=== PATIENT | male | born 1950 | race Caucasian/White ===

== ENCOUNTER 2017-07-28 20:24 | Emergency (ER) | payer MEDICARE, OTHER ==
[~2017-07-28] VITALS: Ht 177.8 cm; Wt 72.6 kg
[2017-07-28] MEDS ORDERED: 0.9 % SODIUM CHLORIDE 10 ML DISP.SYRIN. IV PRN (20:45)
[2017-07-28] MEDS ORDERED: fentaNYL PF VIAL 100 MCG/2 ML VIAL IV PRN (20:45)
--- NOTE | 2017-07-28 20:47 | PHYS DOC ---
Past Medical History Past Medical History: Hypertension Additional Past Medical Histor: PATIENT NON COMPLIANT WITH ALL MEDICAL TREATMENT Smoking: Cigarettes, Greater than 1 pack/day Adult General Chief Complaint Chief Complaint: HIP PAIN HPI HPI Patient is a 66 year old male who presents with family after a fall. 2 days ago patient was balancing himself on the top edge of the couch trying to reach the ceiling when he fell onto his right side. Hit his right ribs and right hip. Has had pain since. He has prior medical diagnosis "BUT REFUSES ALL CARE" per his family. He "just wants an xray." he is a very heavy smoker. No increase in SOA. No abdominal pain. Denies striking head. No known LOC. He called his family immediately after happening. Review of Systems Review of Systems Constitutional: Denies fever or chills Eyes: Denies change in visual acuity, redness, or eye pain HENT: Denies nasal congestion or sore throat Respiratory: Denies cough or shortness of breath Cardiovascular: right rib pain. GI: Denies abdominal pain, nausea, vomiting, bloody stools or diarrhea : Denies dysuria or hematuria Musculoskeletal: Denies back pain. POS right joint pain Integument: Denies rash or skin lesions Neurologic: Denies headache, focal weakness or sensory changes Current Medications Current Medications Current Medications Medications (Trade) Dose Ordered Sig/[place] Start Time Stop Time Status Last Admin Dose Admin Clonidine HCl (Catapres) 0.1 mg 1X ONCE 07/28/17 21:15 07/28/17 21:16 Fentanyl Citrate (Fentanyl 2ml Vial) 50 mcg PRN Q15MIN PRN 07/28/17 20:45 07/29/17 20:44 Sodium Chloride (Normal Saline Flush) 10 ml QSHIFT PRN 07/28/17 20:45 Allergies Allergies Allergies Coded Allergies Type Severity Reaction Last Updated Verified Unable to Assess 07/28/17 No Physical Exam Physical Exam Constitutional: Well developed, well nourished, no acute distress, non-toxic appearance. Heavy tobacco smell on patient. HENT: Normocephalic, atraumatic, bilateral external ears normal, oropharynx moist, no oral exudates, nose normal. Fluid filled sacs bilaterally infra- orbitally. Eyes: PERRLA, EOMI, conjunctiva normal, no discharge. Neck: Normal range of motion, no tenderness, supple, no stridor. Non tender to palpation; no step off or crepitance. Cardiovascular:Heart rate regular rhythm, no murmur Lungs & Thorax: Bilateral breath sounds coarse bilaterally; no wheezing. Abdomen: Bowel sounds normal, soft, no tenderness, no masses, no pulsatile masses. Skin: Warm, dry, no erythema, no rash. No bruising or ecchymosis noted to skin. No wounds. Back: No tenderness on palpation of thoracic or lumbar spine. Extremities: Ambulates normally; pain on palpation of right superior iliac crest. NVI distally; normal hip flexion. Neurologic: Alert and oriented X 3, normal motor function, normal sensory function, no focal deficits noted. Current Patient Data Vital Signs Vital Signs Date Time Temp Pulse Resp B/P (MAP) Pulse Ox O2 Delivery O2 Flow Rate FiO2 07/28/17 20:41 98.9 53 20 214/103 (140) 99 Room Air 98.9 EKG EKG PATIENT REFUSED Radiology/Procedures Radiology/Procedures CXR interpreted by myself at 2110 PM: No pneumothorax, no pleural effusion, no obvious rib fracture noted. No scapular or clavicle or bony injury. Pelvis interpreted by myself at 2110 PM: No fracture seen. Course & Med Decision Making Course & Med Decision Making Evaluated patient upon arrival. HE CLEARLY HAS MULTIPLE MEDICAL PROBLEMS THAT HAVE BEEN NEGLECTED. His blood pressure is quite elevated. Ordered lab and EKG. HE REFUSES ALL TESTS BUT THE XRAY. Family present during this. Xrays with no obvious injury. AGAIN REITERATED THAT PATIENT IS HIGH RISK. HE AGAIN DECLINES ALL OTHER EVALUATION AND TREATMENT. Daughter knows this and understands risk. Tramadol here for pain. Home w Rx and referral for follow up ( "but I wont' go"). I have spoken with the patient and/or caregivers. I have explained the patient' s condition, diagnosis and treatment plan based on the information available to me at this time. I have answered the patient's and/or caregiver's questions and addressed any concerns. The patient and/or caregivers have as good an understanding of the patient's diagnosis, condition and treatment plan as can be expected at this point. The patient's condition is stable and appropriate for discharge from the emergency department. The patient will pursue further outpatient evaluation with the primary care physician or other designated or consulting physician as outlined in the discharge instructions. The patient and/or caregivers are agreeable to this plan of care and follow-up instructions have been explained in detail. The patient and/or caregivers have received these instructions in written format and have expressed an understanding of the discharge instructions. The patient and/or caregivers are aware that any significant change in condition or worsening of symptoms should prompt an immediate return to this or the closest emergency department or a call to 911. Dragon Disclaimer Dragon Disclaimer This electronic medical record was generated, in whole or in part, using a voice recognition dictation system. Departure Departure Impression: Primary Impression: Fall Additional Impressions: Medical non-compliance Tobacco abuse Disposition: HOME, SELF-CARE Condition: STABLE Patient Instructions: Fall Prevention and Home Safety Additional Instructions: You have refused all other evaluation. It is highly encouraged to seek medical care for your blood pressure and possibility of other medical issue such as emphysema. You were given referrals for follow-up. If he worsens at all please return immediately. Scripts Tramadol Hcl/Acetaminophen (TRAMADOL-ACETAMINOPHN 37.5-325) 1 Each Tablet 1 TAB PO Q4-6HRS, #20 TAB Prov: LILIYA DAMICO MD 07/28/17 Problem Qualifiers Primary Impression: Fall Encounter type: initial encounter Qualified Codes: W19.XXXA - Unspecified fall, initial encounter LILIYA DAMICO MD Jul 28, 2017 20:47
[2017-07-28] MEDS ORDERED: cloNIDine HCL 0.1 MG TABLET PO ONE (21:15)
[2017-07-28] MEDS ORDERED: TRAM1TAB4 PO (21:18)
[2017-07-28 21:23] VITALS: BP 214/93
[2017-07-28] MEDS ORDERED: traMADol 50 MG TABLET PO ONE (21:30)
--- NOTE | 2017-07-29 07:40 | RAD ---
Indication: Fall from roof. Pain. Technique: Supine AP pelvis was obtained. No comparison is available. Findings: Bony pelvis appears intact. Small ossific density is noted near the roof of the acetabulum laterally. This appears well-corticated, may be degenerative or sequela of remote trauma. The included bowel gas pattern is nonobstructive. There are calcified phleboliths. Impression: No definite acute pelvic fracture.
--- NOTE | 2017-07-29 07:42 | RAD ---
Indication: Pain after fall from roof. Technique: Upright portable chest radiograph was obtained. No comparison is available. Findings: There are bands of linear atelectasis bilaterally. There is no pneumothorax or pleural fluid. Cardiomediastinal silhouette is within normal limits. There is atheromatous disease in the thoracic aorta. There is colonic interposition between the liver and diaphragm. Impression: Minimal linear atelectasis.
== END 2017-07-28 21:25 | disposition home or self-care (01) ==
LOC: ER 20:24
DX: Z91.14 Patient's other noncompliance with medication regimen (principal); F17.210 Nicotine dependence, cigarettes, uncomplicated; I10 Essential (primary) hypertension; M25.551 Pain in right hip; R07.81 Pleurodynia; W13.2XXA Fall from, out of or through roof, initial encounter; Y93.89 Activity, other specified; Y99.8 Other external cause status; Y92.89 Other specified places as the place of occurrence of the external cause
CPT/HCPCS: 71010; 72170; 99284